=== PATIENT | female | born 1970 | race Caucasian/White ===

== ENCOUNTER 2018-03-27 10:13 | Day surgery (SDC) | payer BC, OTHER ==
[2018-03-26 12:38] VITALS: BMI 31.3
--- NOTE | 2018-03-27 08:19 | HP ---
[facility]ellite [facility] - Chief Complaint Chief Complaint: right knee pain/instability - Past Medical History Allergies/Adverse Reactions: Allergies Allergy/AdvReac Type Severity Reaction Status Date / Time No Known Drug Allergies Allergy Verified 03/26/18 12:38 Cardiovascular: Yes: HTN ...LMP: 06/21/15 Heme/Onc: Yes: Anemia (Told by Dr. Garcia) Endocrine: Yes: Diabetes Mellitus, Hypothyroidism - Current Medications Current Medications: Home Medications Medication Instructions Recorded Fish Oil/Fat No.8/Hrb Comb.137 1,200 mg PO HS 06/10/12 [[place] 3-6-9 1,200 mg Softgel] Levothyroxine [Synthroid] 137 mcg PO DAILY 06/10/12 Olmesartan Medoxomil [Benicar] 20 mg PO HS 06/10/12 Cholecalciferol (Vitamin D3) 1,000 unit PO BID 06/28/15 [Vitamin D-3] Iron 1 tab PO BID 06/28/15 Sitagliptin Phos/Metformin HCl 1 tab PO DAILY 06/28/15 [Janumet 50-500 mg Tablet] Ascorbate Calcium [Vitamin C] 500 mg PO DAILY 03/26/18 Satellite Physical Exam - Physical Examination General Appearance: Well Nourished, Well Developed, Alert & Oriented x3 ENT: Clear Lung: Normal air movement Heart: Regular rate & rhythm Extremities: Other (right knee- + ttp, decr rom, + kolby, + ant draw, + pivot , nvi MRI + acl rupture) Neurological: Intact, Alert, Oriented Satellite Impression/Plan - Impression/Plan Impression: right knee ACL rupture Operative Procedure: right knee arthroscopy with ACL reconstruction using graftlink Date to be Performed: 03/27/18
[~2018-03-27 10:13] MED LIST: LACTATED RINGERS SOLUTION 1,000 ML IV SCH; ONDANSETRON 4 MG/2 ML VIAL IVPUSH PRN; oxyCODONE HCL 5 MG TABLET PO PRN
[2018-03-27] MEDS ORDERED: DEXAMETHASONE SOD PHOSPHATE/PF 10 MG/ML SDV ONE (10:22)
[2018-03-27] MEDS ORDERED: BUPIVACAINE HCL/PF 0.5% (5MG/ML) 10 ML VIAL ONE (10:22)
[2018-03-27] MEDS ORDERED: MIDAZOLAM HCL 2 MG/2 ML SINGLE DOSE VIAL ONE ×2 (10:23)
[2018-03-27] MEDS ORDERED: PROPOFOL 20 ML ONE ×2 (10:25)
[2018-03-27] MEDS ORDERED: LIDOCAINE HCL/PF 2% SDV 5ML VIAL ONE (10:25)
[2018-03-27] MEDS ORDERED: ceFAZolin SODIUM 1 GM VIAL IVPB ONE (11:32)
[2018-03-27] MEDS ORDERED: ceFAZolin SODIUM 1 GM VIAL ONE (11:38)
[2018-03-27] MEDS ORDERED: DEXAMETHASONE SOD PHOSPHATE 4 MG/1 ML VIAL ONE (12:09)
[2018-03-27] MEDS ORDERED: KETOROLAC TROMETHAMINE 30 MG/1 ML VIAL ONE (12:09)
--- NOTE | 2018-03-27 13:31 | OP ---
Operative Note - Note: Operative Date: 03/27/18 ([facility]) Pre-Operative Diagnosis: right knee acl rupture Operation: right knee arthroscopy with ACL reconstruction using graftlink allograft, PLM Post-Operative Diagnosis: Same as Pre-op Surgeon: Carson Mendes Body Shop Mechanic: Jose Manuel Oneill Anesthesiologist/PARADI OPERATOR: Lisa Coronado Anesthesia: General, Local Specimens Removed: shavings Estimated Blood Loss (mls): 10 Operative Report Dictated: Yes
[2018-03-27 14:47] VITALS: TEMP 98
--- NOTE | 2018-03-27 17:36 | OP ---
DATE OF OPERATION: 03/27/2018 PREOPERATIVE DIAGNOSIS: Right anterior cruciate ligament tear. POSTOPERATIVE DIAGNOSIS: Right anterior cruciate ligament tear, plus lateral meniscus tear. PROCEDURE: Right anterior cruciate ligament reconstruction with GraftLink and partial lateral meniscectomy. SURGICAL ATTENDING: Carson Mendes M.D. GARMENT STEAMER: Monique Lackey ANESTHESIA: Regional and general. CLOSURE: An Ar[employer] GraftLink with the appropriate buttons, 3-0 nylon to skin. ESTIMATED BLOOD LOSS: Negligible. COMPLICATIONS: None. CONDITION: To recovery room in stable condition. DESCRIPTION OF PROCEDURE: Patient taken to the operating room on March 27, 2018. Regional and general anesthesia was administered by the anesthesiologist. IV Kefzol administered prophylactically prior to the case. The right lower extremity was prepped and draped in the usual sterile fashion. Superomedial and medial and lateral infrapatellar portals were made with 15-blade followed by a blunt trocar. The outflow portal trocar was placed superomedially. Scope trocar was placed in the inferolateral portal and up in the suprapatellar pouch. Pouch was visualized to be clean. The medial and lateral gutters were visualized to be clean. The undersurface of the patella and trochlea were visualized to be intact. With valgus stress on the knee, the medial compartment was entered. The medial meniscus was visualized and probed, and found to be intact. Medial femoral condyle was run and found to be intact as was the medial tibial plateau. In the figure-4 position, lateral compartment was entered. The lateral meniscus was found to have a complex tear, constituting flap tears and horizontal and vertical tears of the posterior horn. Almost the entire posterior horn was debrided until the mid area of the meniscus using arthroscopic biters and marlena. The lateral femoral condyle was found to be intact as was lateral tibial plateau. At 90 degrees the ACL was found to be completely torn and its stump was debrided. A notchplasty was performed, gaining sufficient width and height to perform the procedure into the posterior aspect of the notch. Scope was switched to inferomedial portal. An over the top guide was then placed in the appropriate position, and the posterior aspect of the notch low down on the wall. A Flipcutter was then drilled from the anterolateral distal femur into the knee, flipped and pulled back making a tunnel of approximately 25 mm, leaving the lateral cortex intact. A fibrous excision was placed down and exited the inferolateral portal. The scope was placed back into the inferolateral portal. The tibial guide was then used to drill a Flipcutter just anterior to the PCL. It was then flipped and drilled retrograde, a 25-mm tunnel preserving the lateral cortex. A fibrous stick suture was also placed up this tunnel as a shuttle stitch exiting the inferolateral portal. Both sutures were then exited together through the inferomedial portal. All debris inside the knee was debrided using the shaver. The inferomedial portal was extended to allow passage of the graft. The graft was shelled up the femur and down the tibia, first allowing the button to engage the lateral cortex, and it was toggled to a depth of approximately 20 mm. It was then pulled down the tibial tunnel and a tibial button was deployed with a small stab incision that was toggled until approximately 20 mm was in the tibial tunnel. The knee was placed in extension. Both toggle sutures were pulled, gaining sufficient tightness of the ACL. The knee was taken through a range of motion and found to be in full extension and full flexion with excellent tension of the ACL and negative Angela, negative anterior/posterior drawer, negative pivot shift. Range of motion revealed no impingement of the graft on the notch throughout the range of motion. Sutures were cut flush. All portals and stab incisions were closed using 3-0 nylon. Sterile pressure dressing and knee immobilizer were applied. The patient was awakened from anesthesia and transferred to recovery in stable condition. No complications. Estimated blood loss negligible. Vidhya DEL CID/[id number]
[2018-03-27 17:43] VITALS: BP 114/62; PULSE 86
--- NOTE | 2018-03-29 18:02 | PATH ---
Surgical Pathology Report Patient Name: MARIA QURESHI [facility]. Rec. #: [id number] /Age/Gender: 1970 (Age: 47) / F Account: [id number] Location: [facility] SURGICAL Taken: 03/27/2018 Received: 03/27/2018 Reported: 03/29/2018 Physicians: Carson Mendes M.D. Specimen(s) Received RIGHT KNEE SHAVINGS Clinical History Right knee ACL tear Final Diagnosis KNEE SHAVINGS, RIGHT, ARTHROSCOPY AND ACL REPAIR: FRAGMENTS OF CARTILAGE, DENSE FIBROCONNECTIVE TISSUE, ADIPOSE TISSUE, AND SYNOVIUM. Electronically Signed Danielle Lopez M.D. Gross Description Received in formalin, labeled "right knee shavings," is a 5.5 x 4.0 x 0.7 cm. aggregate of malhotra-yellow soft tissue fragments. A claims representative portion is submitted in one cassette. 03/28/201803/28/2018
== END 2018-03-27 16:20 | disposition home or self-care (01) ==
LOC: JASU-SURG 10:13
PROVIDERS: ATTEND Orthopaedic Surgery
PROC: 0SBC4ZZ Excision of Right Knee Joint, Percutaneous Endoscopic Approach (ICD-10-PCS; 2018-03-27)
PROC: 0MRN47Z Replacement of Right Knee Bursa and Ligament with Autologous Tissue Substitute, Percutaneous Endoscopic Approach (ICD-10-PCS; principal; 2018-03-27 08:00)
DX: S83.511A Sprain of anterior cruciate ligament of right knee, initial encounter (principal); S83.281A Other tear of lateral meniscus, current injury, right knee, initial encounter; X58.XXXA Exposure to other specified factors, initial encounter; Y93.9 Activity, unspecified; Y92.9 Unspecified place or not applicable
CPT/HCPCS: 82962; 94760

== ENCOUNTER 2021-09-04 14:23 | Emergency (ER) | payer BC, OTHER ==
[2021-09-04 14:40] VITALS: BMI 29.9
[2021-09-04] MEDS ORDERED: KETOROLAC TROMETHAMINE 60 MG/2 ML VIAL IM ONE (14:48)
[2021-09-04] MEDS ORDERED: KETOROLAC TROMETHAMINE 60 MG/2 ML VIAL ONE (14:55)
[2021-09-04 15:28] LABS: BASO % 4.8 % (0-2.0); EOS % 3.2 % (0-4.5); HEMATOCRIT 35.1 % (32.4-45.2); HEMOGLOBIN 11.8 GM/dl (10.7-15.3); LYMPH % 32.1 % (8-40); MCH 29.4 pg (25.7-33.7); MCHC 33.5 g/dl (32.0-36.0); MEAN CELL VOLUME 87.8 fl (80-96); MEAN PLT VOLUME 8.4 fl (7.5-11.1); NEUT % 52.9 % (42.8-82.8); PLATELET COUNT 296 10^3/uL (134-434); RBC 3.99 M/mm3 (3.60-5.2); RDW 12.8 % (11.6-15.6); WHITE BLOOD COUNT 4.6 K/mm3 (4.0-10.8)
[2021-09-04 15:42] LABS: BILIRUBIN,TOTAL 0.7 mg/dl (0.2-1); CALCIUM 9.1 mg/dl (8.5-10); CREATININE 0.6 mg/dl (0.55-1.3); TOT PROT 7.1 g/dl (6.4-8.2)
[2021-09-04 15:52] LABS: EPITHELIAL CELLS FEW /hpf
[2021-09-04] MEDS ORDERED: CEFTRIAXONE 1 GM in DEXTROSE 5%-WATER - 100 ML IVPB ONE (17:19)
[2021-09-04] MEDS ORDERED: cefTRIAXone SODIUM 1 GM VIAL ONE (17:20)
[2021-09-04 17:27] VITALS: BP 103/67; PULSE 75; TEMP 98.1
== END 2021-09-04 19:03 | disposition home or self-care (01) ==
LOC: FER 14:23
PROC: 3E03329 Introduction of Other Anti-infective into Peripheral Vein, Percutaneous Approach (ICD-10-PCS; principal; 2021-09-04)
PROC: 3E0233Z Introduction of Anti-inflammatory into Muscle, Percutaneous Approach (ICD-10-PCS; 2021-09-04)
DX: M51.26 Other intervertebral disc displacement, lumbar region (principal); R20.2 Paresthesia of skin; N39.0 Urinary tract infection, site not specified
CPT/HCPCS: 36415; 71045-TC-FY; 72131-TC; 72148-TC; 76857; 80053; 81003; 81015; 85025; 87086; 87186; 93005; 99285-25; C9803; U0003; U0005

== ENCOUNTER 2023-05-01 22:10 | Emergency (ER) | payer BC, OTHER ==
[2023-05-01 22:32] VITALS: BP 116/75; PULSE 109; RESP 18; TEMP 98.2; BMI 28.0
[2023-05-01] MEDS ORDERED: DEXAMETHASONE SOD PHOSPHATE 10 MG/1 ML VIAL IM ONE (23:59)
[2023-05-01] MEDS ORDERED: FAMOTIDINE 10 MG TABLET PO ONE (23:59)
[2023-05-02] MEDS ORDERED: FAMOTIDINE 10 MG TABLET ONE (00:03)
[2023-05-02] MEDS ORDERED: DEXAMETHASONE SOD PHOSPHATE 10 MG/1 ML VIAL ONE (00:03)
== END 2023-05-02 00:51 | disposition home or self-care (01) ==
LOC: JER 22:10
PROC: 3E023GC Introduction of Other Therapeutic Substance into Muscle, Percutaneous Approach (ICD-10-PCS; principal; 2023-05-02)
DX: R21 Rash and other nonspecific skin eruption (principal); T78.40XA Allergy, unspecified, initial encounter; M79.10 Myalgia, unspecified site; L29.9 Pruritus, unspecified; R07.0 Pain in throat; M79.641 Pain in right hand; M79.642 Pain in left hand
CPT/HCPCS: 99284-25; J1100

== ENCOUNTER 2024-09-09 05:35 | Day surgery (SDC) | payer BC, OTHER ==
[2024-09-01 11:16] VITALS: BMI 29.8
[2024-09-09 10:40] VITALS: TEMP 98.3
[2024-09-09 11:11] VITALS: BP 111/75; PULSE 76; RESP 18
== END 2024-09-09 11:40 | disposition home or self-care (01) ==
LOC: JASU-ENDO 05:35
PROVIDERS: ATTEND Internal Medicine Gastroenterology
PROC: 0DB68ZX Excision of Stomach, Via Natural or Artificial Opening Endoscopic, Diagnostic (ICD-10-PCS; 2024-09-09)
PROC: 0DJD8ZZ Inspection of Lower Intestinal Tract, Via Natural or Artificial Opening Endoscopic (ICD-10-PCS; principal; 2024-09-09 10:00)
DX: Z12.11 Encounter for screening for malignant neoplasm of colon (principal); K44.9 Diaphragmatic hernia without obstruction or gangrene; K21.00 Gastro-esophageal reflux disease with esophagitis, without bleeding; Z98.0 Intestinal bypass and anastomosis status; Z98.84 Bariatric surgery status; Z80.0 Family history of malignant neoplasm of digestive organs
CPT/HCPCS: 82962; 88305-TC; 88342-TC